=== PATIENT | male | born 1975 | race African-American/Black ===

== ENCOUNTER 2017-10-03 | Emergency (ER) | payer MEDICAID ==
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
== END 2017-10-03 03:40 | disposition home or self-care (01) ==
LOC: ER
DX: S16.1XXA Strain of muscle, fascia and tendon at neck level, initial encounter (principal); S33.9XXA Sprain of unspecified parts of lumbar spine and pelvis, initial encounter; M54.5 Low back pain; M54.2 Cervicalgia; N20.0 Calculus of kidney; I10 Essential (primary) hypertension; N28.1 Cyst of kidney, acquired; V89.2XXA Person injured in unspecified motor-vehicle accident, traffic, initial encounter; Y93.89 Activity, other specified; Y92.89 Other specified places as the place of occurrence of the external cause; Y99.8 Other external cause status
CPT/HCPCS: 70450-TC; 72125-TC; 72131-TC; J1885; Z7502